=== PATIENT | male | born 1960 | race Two or more races ===

== ENCOUNTER 2022-09-29 12:25 | Emergency (ER) | payer SELFPAY ==
[~2022-09-29] VITALS: Ht 177.8 cm; Wt 92.0 kg
[2022-09-29 13:01] VITALS: BP 141/75
[2022-09-29] MEDS ORDERED: SODIUM CHLORIDE 0.9% 1,000 ML IV ONE (13:15)
[2022-09-29 13:52] LABS: Alcohol, Urine < 3.0 mg/dL (0-10); Cannabinoid Screen, Urine POSITIVE (NEGATIVE)
[2022-09-29 14:02] LABS: Amphetamine Screen, Urine POSITIVE (NEGATIVE); Barbiturate Scree,Urine NEGATIVE (NEGATIVE); Benzodiazephine Screen, Urine NEGATIVE (NEGATIVE); Cocaine Screen, Urine NEGATIVE (NEGATIVE); Opiate Scree,Urine NEGATIVE (NEGATIVE); Phencyclidine Screen, Urine NEGATIVE (NEGATIVE)
[2022-09-29 14:03] LABS: Urine Bacteria NONE SEEN /hpf (None Seen); Urine Blood 3+ /uL (Negative); Urine Specific Gravity 1.017 (1.001-1.035); Urine WBC 2726 /hpf (0 - 3); Urine WBC Clumps PRESENT /hpf (None Seen)
[2022-09-29 14:08] LABS: Calcium 9.4 mg/dL (8.5-10.1); Potassium 4.8 mmol/L (3.5-5.1)
[2022-09-29 14:10] LABS: BUN/Creatinine Ratio 11.1
[2022-09-29] MEDS ORDERED: CIPR-173 PO (14:10)
[2022-09-29 14:13] LABS: Basophils # (auto) 0.2 10 ^3/uL (0-0.2); Basophils % (auto) 1.5 % (0.0-2.0); Eosinophils # (auto) 0.1 10 ^3/uL (0-0.8); Eosinophils % (auto) 0.4 % (0.0-7.0); Hematocrit 46.5 % (41.0-53.0); Hemoglobin 15.4 g/dL (13.5-17.5); Lymphocytes # (auto) 1.8 10 ^3/uL (0.4-5.4); Lymphocytes % (auto) 11.4 % (10.0-50.0); Mean Corpuscular Hemoglobin 30.9 pg (28.0-32.0); Mean Corpuscular Volume 93.5 fL (80.0-100.0); Monocytes # (auto) 1.8 10 ^3/uL (0-1.3); Monocytes % (auto) 11.2 % (0.0-12.0); Neutrophils # (auto) 12.1 10 ^3/uL (1.6-8.6); Neutrophils % (auto) 75.5 % (37.0-80.0); Red Blood Cells 4.98 10^6/uL (4.5-5.90)
[2022-09-29 14:22] LABS: Albumin 3.4 g/dL (3.4-5.0); Bilirubin, Total 0.8 mg/dL (0.2-1.0)
[2022-09-29] MEDS ORDERED: cefTRIAXone 1GM/50ML D5W 50 ML IV ONE (15:30)
== END 2022-09-29 19:46 | disposition home or self-care (01) ==
LOC: ER 12:25
DX: N39.0 Urinary tract infection, site not specified (principal); F15.10 Other stimulant abuse, uncomplicated
CPT/HCPCS: 36415; 80053; 80307; 81001; 84484; 85025; 87804